=== PATIENT | female | born 1945 | race Caucasian/White ===

== ENCOUNTER 2023-05-12 15:08 | Emergency (ER) | payer MEDICARE, SELFPAY ==
[2023-05-12 15:15] VITALS: BP 106/81; PULSE 84; RESP 18; O2SAT 96
--- NOTE | 2023-05-12 15:15 | DI.RAD_ITS ---
Exam(s) XR HAND RT COMPLETE EXAM: XR HAND RT COMPLETE CLINICAL HISTORY: s/p fall, pain swelling. TECHNIQUE: 2D digital imaging was performed. Three views. COMPARISON: No exams were available for comparison FINDINGS: BONES: Nondisplaced fracture seen through the mid shaft of the 3rd metacarpal. No bony destructive l esion is seen. JOINTS: No dislocation present. SOFT TISSUE: Dorsal swelling. IMPRESSION: Nondisplaced fracture 3rd metacarpal. DATA REPOSITORY: RADIATION DOSE DELIVERED:
--- NOTE | 2023-05-12 16:40 | ED.GENADUL_ITS ---
Discharge Plan Disposition Patient Disposition: Home Discharge Details Clinical Impression: Hand fracture, right Primary Care Provider: Manuel Dang ED Provider: Alessandra Whyte Home Meds and New Rx's Prescriptions: Continued amphetamine sulfate [Evekeo] 10 MG tablet 10 mg PO BID Patient Comments: Not taking dextroamphetamine-amphetamine 10 mg tablet 10 mg PO QID Patient Comments: TAKE MAX OF 4 TABLETS THROUGHOUT THE DAY lisinopril-hydrochlorothiazide 10-12.5 mg tablet 1 tab PO DAILY Patient Comments: TAKE 1 TABLET BY MOUTH DAILY escitalopram oxalate 10 mg tablet 10 mg PO DAILY Patient Comments: TAKE 1 TABLET BY MOUTH DAILY Discharge Instructions Instructions: Hand Fracture (ED) Additional Instructions: Wear wrist splint for comfort and support for your right hand fracture Elevate above the level your heart is much as possible to reduce throbbing and swelling if needed Continue to use ice during the day 20 minutes every 2-3 hours for pain and swelling then you can use heat or ice per your preference after the first 2 days Referrals: Manuel Dang [Primary Care Provider] - (Follow-up with orthopedics in 1 to 2 weeks) Medical Decision Making This is a 77-year-old female with a past medical history of MS who had a mechanical fall with isolated injury to her right hand this happened yesterday. There was no other injury. X-ray of the right hand does show a nondisplaced third metacarpal fracture. She was placed in a wrist splint and will follow-up with orthopedics in 1 to 2 weeks. She should continue to ice elevate and NSAIDs for symptoms Medical Records Medical records reviewed: Yes I reviewed the patient's medical records. Imaging Data Radiologic Study: Attestation: I personally reviewed and interpreted this imaging study as follows: Imaging: X-Ray (Nondisplaced fracture third metacarpal) HPI General Mode of arrival: wheelchair . Date/Time Provider Initiated Documentation: 05/12/23 15:19 . Limitations to Documentation: no limitations . Information obtained by: patient . HPI Narrative: This is a 77-year-old female patient with MS who had a mechanical fall yesterday with injury to her right hand trying to prevent herself from falling. She has swelling bruising and pain to the dorsal aspect of her right hand. She is right-hand dominant. There was no other injury. She has a limited range of motion to her wrist but this is baseline for her she is able to move all her fingers she has no numbness or tingling distally. Related Data Home Medications Medication Instructions Recorded Confirmed amphetamine sulfate 10 mg tablet 10 mg PO BID 10/23/15 10/23/15 (Zacarias) dextroamphetamine-amphetamine 10 10 mg PO QID 05/12/23 05/12/23 mg tablet escitalopram oxalate 10 mg tablet 10 mg PO DAILY 05/12/23 05/12/23 lisinopril 10 1 tab PO DAILY 05/12/23 05/12/23 mg-hydrochlorothiazide 12.5 mg tablet Allergies Allergy/AdvReac Type Severity Reaction Status Date / Time No Known Allergies Allergy Unverified 05/12/23 15:18 General Stated Complaint: Orthopedic NAHUM: 4 Review of Systems All systems reviewed & are unremarkable except as noted in HPI and below ENT Ears, Nose, Mouth, and Throat: Denies vertigo and Denies dizziness Cardiovascular Cardiovascular: Denies syncope Musculoskeletal Musculoskeletal: Reports arthralgias, Reports joint swelling and Reports muscle weakness (Chronic and at baseline) Integumentary/Breasts Skin/Breast: Denies lesions Comments: Hematoma to dorsal aspect of right hand Neurologic Neurologic: Denies vertigo, Denies dizziness and Denies syncope PFSH All Active Problems (Updated 05/12/23 @ 16:50 by Alessandra Whyte NP) Hand fracture, right (Acute) Social History Smoking/Tobacco Use Status: Former Tobacco Use Smoking risk assessment performed?: Yes Alcohol Intake: never Drug use: Rarely Substance use type: does not use Exam Const General: cooperative and no acute distress Nutritional Appearance: thin Orientation: alert, awake and oriented x3 HENMT Head: normal to inspection, normocephalic and atraumatic Eyes General: appearance normal, both eyes and all related structures Neck Neck: normal visual inspection, full ROM, nontender and other (No C-spine tenderness on palpation) Resp Effort & Inspection: normal respiratory effort Cardio Rate: regular rate (Radial pulse intact right) Skin General skin exam: ecchymosis (Hematoma dorsal aspect right hand) Lesions: no lesions Rashes: no rashes Neuro General: patient alert, patient awake and patient oriented x3 Extrem Right upper extremity: elbow/forearm, wrist (Limited range of motion but at baseline per patient's report) Details: no tenderness, no swelling, no ecchymosis and no deformity and hand Details: abnormal to inspection (Hematoma to dorsal aspect right hand no obvious deformity); no edema (No significant edema but with hematoma over dorsal aspect) Left upper extremity: normal to inspection Course Vital Signs Vital signs: Vital Signs Pulse 84 05/12/23 15:15 Respiratory Rate 18 05/12/23 15:15 Blood Pressure 106/81 05/12/23 15:15 Pulse Oximetry 96 05/12/23 15:15 Pulse 84 05/12/23 15:15 Respiratory Rate 18 05/12/23 15:15 Respiratory Effort Normal 05/12/23 15:22 Blood Pressure 106/81 05/12/23 15:15 Blood Pressure Position Sitting 05/12/23 15:15 Pulse Oximetry 96 05/12/23 15:15 Oxygen Delivery Method Room Air 05/12/23 15:15 Oxygen Flow Rate 0 05/12/23 15:15 Pain Level 0 05/12/23 15:15 Comment Pain is felt when the area is touched 05/12/23 15:15
== END 2023-05-12 17:12 | disposition home or self-care (01) ==
PROVIDERS: Emergency Provider Nurse Practitioner Acute Care
DX: M25.531 Pain in right wrist (principal); S62.392A Other fracture of third metacarpal bone, right hand, initial encounter for closed fracture; W18.39XA Other fall on same level, initial encounter; Y93.01 Activity, walking, marching and hiking; Y92.89 Other specified places as the place of occurrence of the external cause; Y99.9 Unspecified external cause status; Z87.891 Personal history of nicotine dependence
CPT/HCPCS: 29125; 99283; 73130

== ENCOUNTER 2023-05-25 14:49 | Outpatient (CLI) | payer MEDICARE, SELFPAY ==
--- NOTE | 2023-05-25 13:45 | DI.RAD_ITS ---
Exam(s) XR HAND RT LIMITED EXAM: XR HAND RT LIMITED INDICATION: right 3rd metacarpal fx. COMPARISON: CR XR HAND RT COMPLETE from 05/12/2023 TECHNIQUE: 2D digital imaging was performed. Three views. FINDINGS: There has been no change in the alignment of the nondisplaced fracture of the 3rd metacarpal. No new abnormalities. DATA REPOSITORY: RADIATION DOSE DELIVERED:
== END 2023-05-25 14:50 | disposition home or self-care (01) ==
LOC: DIORS 14:49
PROVIDERS: Visit Provider Student in an Organized Health Care Education/Training Program
DX: S62.302A Unspecified fracture of third metacarpal bone, right hand, initial encounter for closed fracture (principal); W19.XXXA Unspecified fall, initial encounter
CPT/HCPCS: 99203; 99213; 73120

== ENCOUNTER 2023-06-22 16:04 | Outpatient (CLI) | payer MEDICARE, SELFPAY ==
--- NOTE | 2023-06-22 14:00 | DI.RAD_ITS ---
Exam(s) XR HAND RT LIMITED EXAM: XR HAND RT LIMITED CLINICAL HISTORY: right hand f/u. TECHNIQUE: 2D digital imaging was performed. Two views. COMPARISON: CR XR HAND RT LIMITED from 05/25/2023 FINDINGS: There has been no change in the alignment of the fracture of the 3rd metacarpal. there is increased callus formation indicating some interval healing. The bones are overall appear osteoporotic. No n ew abnormalities are seen. DATA REPOSITORY: RADIATION DOSE DELIVERED:
== END 2023-06-22 16:05 | disposition home or self-care (01) ==
LOC: DIORS 16:04
PROVIDERS: Visit Provider Student in an Organized Health Care Education/Training Program
DX: S62.302D Unspecified fracture of third metacarpal bone, right hand, subsequent encounter for fracture with routine healing (principal); X58.XXXD Exposure to other specified factors, subsequent encounter
CPT/HCPCS: 99213; 73120

== ENCOUNTER 2024-05-31 11:58 | Emergency (ER) | payer MEDICARE, SELFPAY ==
[2024-05-31] VITALS (22 sets, daily range): BP systolic 99–158; BP diastolic 74–97; PULSE 71–76; RESP 15; TEMP 37; O2SAT 94–100
--- NOTE | 2024-05-31 12:36 | ED.GENADUL_ITS ---
Discharge Plan Disposition Patient Disposition: Home Discharge Details Clinical Impression: Multiple fractures of ribs of right side, Hx of falling Primary Care Provider: Unknown,Unknown ED Provider: Ru Jaramillo Home Meds and New Rx's Prescriptions: New lidocaine [Lidoderm] 5 % adhesive patch,medicated 1 patch topical DAILY Qty: 15 0RF Rx Instructions: leave on most painful area for up to 12 hrs gabapentin 100 mg capsule See Rx Instructions .ROUTE .COMPLEX Qty: 10 0RF Rx Instructions: 100 mg orally 3 times daily as needed Continued dextroamphetamine-amphetamine 10 mg tablet 10 mg PO QID Patient Comments: TAKE MAX OF 4 TABLETS THROUGHOUT THE DAY lisinopril-hydrochlorothiazide 10-12.5 mg tablet 1 tab PO DAILY Patient Comments: TAKE 1 TABLET BY MOUTH DAILY escitalopram oxalate 10 mg tablet 10 mg PO DAILY Patient Comments: TAKE 1 TABLET BY MOUTH DAILY amlodipine 5 mg tablet 5 mg PO DAILY Discharge Instructions Instructions: Rib fractures in adults Additional Instructions: You are seen in emergency department for your rib pain. You are found to have rib fractures on the right side of ribs 9 through 11. Please use the incentive spirometry device as provided by respiratory therapy as directed. Please return to the emergency department as we discussed if you develop fevers shortness of breath or uncontrollable pain. For your pain please take medications as follows: 1. Take acetaminophen (Tylenol), 650 mg every 6 hours [2. Take ibuprofen (Advil), 200 mg every 6 hours.] Prescriptions have also been sent to your pharmacy which you should take as directed. Please follow-up with your primary care provider next week. HPI General Date/Time Provider Initiated Documentation: 05/31/24 12:17 . HPI Narrative: MDM Primary survey intact. Reassuring shock index. On secondary survey patient has right-sided flank mild ecchymosis and abrasion concerning for underlying rib fracture. Based on the patient's age will obtain CT abdomen pelvis with IV contrast. No midline thoracic or lumbar spinal tenderness so we will defer thoracic and lumbar recons. No head strike nor loss of consciousness so will defer CT head. No midline cervical spinal tenderness that we will defer CT cervical spine. No pain out of proportion to suggest necrotizing soft tissue infection. Equal breath sounds so low suspicion for pneumothorax so will defer portable chest x-ray. No preceding dizziness to suggest CVA. No preceding chest pain or shortness of breath so doubt ACS and PE respectively so I did not obtain an ECG nor send a D-dimer. Patient has been ambulatory since her fall so my suspicion is low for hip fracture. Will send type and screen in the event that the patient has any significant intra abdominal hemorrhage. 1:15 PM Patient metabolic panel showing CKD. No prior for comparison. No acute electrolyte abnormalities. CBC shows mild normocytic anemia. No leukocytosis. No thrombocytopenia. 2:[address] scan patient was found to have multiple right-sided nondisplaced rib fractures, 9 through 11 with radiology questioning whether or not patient could have 1/8 rib fracture. No pneumothorax. No hemothorax. Will complete incentive spirometry with respiratory therapy following multimodal pain control using acetaminophen, low-dose gabapentin, low-dose ketorolac and 7.5 mg, Lidoderm patch, and 2 mg morphine. 3 PM Patient was able to pull 1500 cc on incentive spirometry. She had minimal pain. I spoke with Dr. Gibbs from general surgery. She agreed that given that the patient had adequate analgesia and was not anticoagulated and had no pneumothorax or hemothorax that she was appropriate for discharge. I considered regional nerve block with anesthesia however given well-controlled pain defer this procedure at this point in time and prescribe Lidoderm patch and low-dose gabapentin along with scheduled acetaminophen ibuprofen. We discussed return to the ED for any worsening pain fevers coughs or chills. She understood her return indications and was discharged with an empiric trial of expectant outpatient management. Chronic conditions affecting the care of the patient: Multiple sclerosis History obtained from an outside historian: N/A External record review: No [facility] [place] Medications: Acetaminophen Social determinants of health affecting disposition: N/A Management discussed with: General Surgery and respiratory therapy. Treatment/interventions considered: N/A Response to therapies provided: Well-controlled. HPI This is a 78-year-old female with a history of multiple sclerosis and hypertension arriving to emergency department private vehicle with her in the setting of right-sided rib pain. Patient notes that yesterday evening at approximately 9:30 PM she took a misstep and fell. She notes that she turned quickly and that her feet did not catch up with her. She did not hit her head. She does not feel short of breath. She denied loss of consciousness. She has been ambulatory since her fall. She has pain on the right side of her ribs. She has not been nauseous nor vomiting. Denies dysuria frequency and headache.Not anticoagulated. Exam General: Chronically ill-appearing in no acute distress speaking in complete sentences. Head: Normocephalic, atraumatic. Eye:[Pupils equal, round reactive to light.] Extraocular eye movements intact. No conjunctival injection. No scleral icterus. Ear, nose, mouth, throat: Grossly normal inspection. Normal voice, handling secretions normally. No hemotympanum bilaterally. No septal hematoma. Neck: Trachea midline. No midline cervical spinal tenderness. Back: No midline thoracic nor lumbar spinal tenderness. No step-off. No deformities. Cardiovascular: Well-perfused distal extremities. Regular rate and rhythm. Chest wall: No flail segments. Respiratory: Nonlabored respiration. Clear lungs bilaterally. Gastrointestinal: Nondistended abdomen. Soft nontender. Mild ecchymosis to the patient's right flank. Tenderness to palpation over ecchymosis. Musculoskeletal: No edema. Moving all 4 extremities spontaneously. Skin: Normal for age and race, grossly normal temperature and turgor. No acute rash. Neurologic: Alert and appropriate, no apparent acute deficits. GCS 15. Psychiatric: Mood and manner are appropriate. Grooming and personal hygiene are appropriate. Related Data Home Medications ?Medication ?Instructions ?Recorded ?Confirmed dextroamphetamine-amphetamine 10 10 mg PO QID 05/12/23 05/31/24 mg tablet escitalopram oxalate 10 mg tablet 10 mg PO DAILY 05/12/23 05/31/24 lisinopril 10 1 tab PO DAILY 05/12/23 05/31/24 mg-hydrochlorothiazide 12.5 mg tablet amlodipine 5 mg tablet 5 mg PO DAILY 05/31/24 05/31/24 gabapentin 100 mg capsule See Rx Instructions .Route 05/31/24 .COMPLEX #10 caps lidocaine 5 % topical patch 1 patch topical DAILY #15 ea 05/31/24 (Lidoderm) Previous Rx's ?Medication ?Instructions ?Recorded gabapentin 100 mg capsule See Rx Instructions .Route 05/31/24 .COMPLEX #10 caps lidocaine 5 % topical patch 1 patch topical DAILY #15 ea 05/31/24 (Lidoderm) Allergies Allergy/AdvReac Type Severity Reaction Status Date / Time No Known Allergies Allergy Unverified 05/31/24 12:14 General Stated Complaint: Chest/Rib NAHUM: 4 Course Vital Signs Vital signs: Vital Signs Temperature 37.0 C 05/31/24 12:08 Pulse 75 08/08/24 12:08 Respiratory Rate 15 05/31/24 12:08 Blood Pressure 138/97 H 05/31/24 12:08 Pulse Oximetry 95 05/31/24 12:08 Temperature 37.0 C 05/31/24 12:08 Temperature Source Oral 05/31/24 12:08 Pulse 75 05/31/24 12:08 Respiratory Rate 15 05/31/24 12:08 Respiratory Effort Normal 05/31/24 12:13 Respiratory Depth Normal 05/31/24 12:13 Respiratory Pattern Normal 05/31/24 12:13 Blood Pressure 138/97 H 05/31/24 12:08 Blood Pressure Position Supine 05/31/24 12:08 Pulse Oximetry 95 05/31/24 12:08 Oxygen Delivery Method Room Air 05/31/24 12:08 Oxygen Flow Rate 0 05/31/24 12:08 Pain Level 7 05/31/24 12:13 Medical Decision Making Quality:SDOH Health Related Social Needs: No Data to Display PFSH All Active Problems (Updated 05/31/24 @ 14:38 by Ru Jaramillo MD) Hx of falling (Acute) Multiple fractures of ribs of right side (Acute) Fracture of third metacarpal bone of right hand (Acute 05/12/23) Social History Smoking/Tobacco Use Status: Former Tobacco Use Smoking risk assessment performed?: Yes Alcohol Intake: never Drug use: Rarely Substance use type: does not use Current gender identity: female
[2024-05-31 12:48] LABS: Abs Immature Grans 0.01 10^3/uL (0.0-0.06); Absolute Basophil Count 0.06 10^3/uL (0.0-0.2); Absolute Eosinophil Count 0.15 10^3/uL (0.0-0.7); Absolute Lymphocyte Count 0.91 10^3/uL (1.2-3.4); Absolute Monocyte Count 0.78 10^3/uL (0.1-0.8); Absolute Neutrophil Count 4.36 10^3/uL (1.2-6.7); Eosinophils % 2.4 %; HCT 33.7 % (36.0-46.0); Immature Grans % 0.2 %; Lymphocytes % 14.5 %; MCH 29.1 pg (27.0-33.0); MCHC 32.6 % (32.0-36.0); MCV 89 fL (80-95); MPV 10.2 fL (8.0-11.0); Monocytes % 12.4 %; Neutrophils % 69.5 %; Platelet Count 223 10^3/uL (130-400); RBC 3.78 10^6/uL (3.93-5.22); RDW 13.6 % (11.7-14.6); RDW-SD 44.6 fL; WBC 6.27 10^3/uL (4.4-10.8)
[2024-05-31 12:57] LABS: Anion Gap 6.2 mmol/L (3-11); BUN 31 mg/dL (7-18); CO2 31.8 mmol/L (21.0-32.0); CREATININE 1.2 mg/dL (0.55-1.02); Calcium 9.3 mg/dL (8.5-10.1); Chloride 100 mmol/L (98-107); Estimated GFR 46.91 (mL/min/1.73m2); Glucose 94 mg/dL (74-106); Potassium 4.3 mmol/L (3.5-5.1); Sodium 138 mmol/L (136-145)
--- NOTE | 2024-05-31 13:29 | DI.CT_ITS ---
Exam(s) CT CHEST/ABD/PEL W EXAM: CT CHEST/ABD/PEL W CLINICAL HISTORY: Right-sided rib pain. TECHNIQUE: Imaging Protocol: Axial computed tomography images with coronal and sagittal reformatted images were created and reviewed CONTRAST MATERIAL: Intravenous: Omnipaque 350 Contrast volume:65 ml Oral: no COMPARISON: No exams were available for comparison FINDINGS: CHEST: Tracheobronchial tree: Patent. Pulmonary parenchyma: No consolidation or dominant measurable mass. No evidence of pulmonary contusi on. Pleura: No effusion or pneumothorax. Mediastinum: Within normal limits. Aorta: Ascending aorta measures 3.9 cm. Descending aorta measures 2.3 cm. Pulmonary arteries: No visible emboli. Heart: No pericardial effusion. Mild coronary artery calcifications. Bones: Nondisplaced fractures of the right posterolateral 9th through 11th ribs. Question of additio nal fracture of the right 8th rib. No lytic or blastic lesions.No compression fractures. Soft tissues: Unremarkable. ABDOMEN and PELVIS: Liver: Normal density. No measurable mass. Gallbladder and biliary tract: No evidence of stones or wall thickening. No biliary dilatation. Pancreas: Normal density, no abnormal calcifications or inflammatory process. Spleen: Normal. Kidneys: Normal size, contour and axis. No radiodense stones. No obstructive uropathy. No suspicious masses seen. Adrenal glands: No masses seen. Aorta: Abdominal portion non-dilated. Lymph nodes: Within normal limits. Soft tissues: Unremarkable. Bladder: Unremarkable. Bowel: No obstruction or bowel wall thickening. Large quantity of stool in the right through descendi ng colon, consistent with constipation. Peritoneal cavity: No ascites. No focal collection. No mesenteric inflammatory response. No free ai r. Bones: The spine shows degenerative changes and mild scoliosis. Reproductive organs: Within normal limits. IMPRESSION: Nondisplaced fractures of the right 9th through 11th ribs. Question of additional nondisplaced fract ure of the 8th rib. No pneumothorax or pulmonary contusion. No acute abnormality abdomen pelvis. Large quantity stool consistent with constipation. Findings called to Dr. Jaramillo of the emergency department. RADIATION DOSE DELIVERED: Total DLP DATA REPOSITORY: All CT scans at this facility are submitted to the National Radiology Data Registry (NRDR) Dose Index Registry (DIR) with the [employer] ([employer]). RADIATION OPTIMIZATION: All CT scans at this facility use at least one of these dose optimization te chniques: automated exposure control; mA and/or kV adjustment per patient size (includes targeted exa ms where dose is matched to clinical indication); or iterative reconstruction.
[2024-05-31] MEDS: Omnipaque 350 MG/ML 100 ML BTL 65 ML IJ (13:33)
[2024-05-31] MEDS: Normal Saline - Diluent 50 ML VIAL IJ (13:34)
[2024-05-31] MEDS: Acetaminophen 325 MG TAB 650 MG PO (14:04)
[2024-05-31] MEDS: Gabapentin 300 MG CAP 100 MG PO (14:39)
[2024-05-31] MEDS: Lidocaine 5% Patch 1 PATCH TP (14:39)
[2024-05-31] MEDS: Ketorolac 15 MG/ML VIAL 7.5 MG IVP (14:40)
[2024-05-31] MEDS: MORPHine 4 MG/ML SYR 2 MG IVP (14:40)
== END 2024-05-31 15:16 | disposition home or self-care (01) ==
PROVIDERS: Emergency Provider Emergency Medicine
DX: S22.41XA Multiple fractures of ribs, right side, initial encounter for closed fracture (principal); G35 Multiple sclerosis; I10 Essential (primary) hypertension; Z87.891 Personal history of nicotine dependence; W01.0XXA Fall on same level from slipping, tripping and stumbling without subsequent striking against object, initial encounter; Y93.89 Activity, other specified; Y92.018 Other place in single-family (private) house as the place of occurrence of the external cause
CPT/HCPCS: 74177; 80048; 86850; 86900; 86901; 96374; 96375; 99285; 71260; 85025; 99284; J1885; J2270; J3490

== ENCOUNTER 2024-06-19 14:54 | Emergency (ER) | payer MEDICARE, SELFPAY ==
[2024-06-19 15:07] VITALS: BP 102/69; PULSE 92; RESP 18; TEMP 36.4; O2SAT 93
--- NOTE | 2024-06-19 15:15 | DI.US_ITS ---
Exam(s) US LOWER EXTREMITY VENOUS RT EXAM: US LOWER EXTREMITY VENOUS RT CLINICAL HISTORY: Swelling. TECHNIQUE: Lower extremity venous ultrasound performed using grayscale, color-flow, and spectral Do ppler analysis. COMPARISON: No exams were available for comparison FINDINGS: The common femoral, femoral and popliteal veins demonstrate normal compressibility, augmentation, and color Doppler. The posterior tibial veins are patent. No saphenous vein thrombosis or other superfi cial venous thrombosis is seen. No hematoma or Davis's cyst is seen. IMPRESSION: Negative lower extremity ultrasound. No evidence of DVT. DATA REPOSITORY:
--- NOTE | 2024-06-19 17:05 | ED.GENADUL_ITS ---
Discharge Plan Disposition Patient Disposition: Home Condition: Stable Discharge Details Clinical Impression: Swelling of right lower extremity Primary Care Provider: Dinorah Santana ED Provider: Carol Duron Home Meds and New Rx's Prescriptions: New (DME) compression socks, medium Misc See Rx Instructions .Route Qty: 2 0RF Rx Instructions: As directed No Action tolterodine 4 mg capsule,extended release 24hr 4 mg PO DAILY dextroamphetamine-amphetamine 10 mg tablet 10 mg PO QID Patient Comments: TAKE MAX OF 4 TABLETS THROUGHOUT THE DAY lisinopril-hydrochlorothiazide 10-12.5 mg tablet 1 tab PO DAILY Patient Comments: TAKE 1 TABLET BY MOUTH DAILY escitalopram oxalate 10 mg tablet 10 mg PO DAILY Patient Comments: TAKE 1 TABLET BY MOUTH DAILY amlodipine 5 mg tablet 5 mg PO DAILY lidocaine [Lidoderm] 5 % adhesive patch,medicated 1 patch topical DAILY Qty: 15 0RF Rx Instructions: leave on most painful area for up to 12 hrs Discharge Instructions Instructions: Lymphedema (DC) Additional Instructions: You were seen in the emergency department today for evaluation of swelling in your right leg. In our department you had a full physical examination performed and had an ultrasound that was negative for blood clot. You likely have a condition called lymphedema, and it is safe to go home and wear compression socks and continue elevating your leg. You need to follow-up with your primary care provider in the next few days to discuss this visit and any symptoms that change, worsen, or persist. Thank you for allowing us to be part of your care. HPI General Mode of arrival: ambulatory . Date/Time Provider Initiated Documentation: 06/19/24 14:55 . Limitations to Documentation: no limitations . Information obtained by: patient, family and old records reviewed . HPI Narrative: MDM: This is a 78-year-old female patient presenting for evaluation of several months of right lower extremity swelling. My differential includes but is not limited to lymphedema, DVT, considered injury to that area given her history of multiple falls though the patient reports that she has not had pain or noticed any injury and the duration of symptoms will be less consistent with the timing of her most recent fall which was a week or 2 ago. The unilaterality of the area makes me less concerned for fluid overload due to cardiac disease such as CHF, or due to liver or kidney failure. She has no redness, induration, warmth to suggest cellulitis or infection. She has strong DP pulses that are symmetrical, with no pallor, neurodeficits, or temperature changes to increase my concern for arterial occlusion. We we will obtain a DVT ultrasound of the affected right lower extremity. I discussed obtaining laboratory studies with the patient at this time, as well as an x-ray to evaluate for acute injury, and given her low concern for other abnormalities besides clot or lymphedema the patient has declined, which I do th ink is reasonable given her reassuring examination and the duration of her symptoms. ED Course: DVT ultrasound negative, and I provided the patient with a prescription for compression socks and recommended wearing them and continuing to elevate her lower extremities. I discussed warning signs for arterial occlusion, infection, and she will follow-up with her primary care provider with any other concerns. At this time, the patient has had a full medical evaluation and is safe for discharge to home. They are hemodynamically stable, ambulatory, and tolerating PO. They are understanding of the follow-up plan and return precautions. They left our facility without incident. Carol Duron MD HPI: This is a 78-year-old female patient with a past medical history of MS, multiple falls, hypertension, presenting for evaluation of right lower extremity swelling. The patient reports that for the last several months she has noted intermittent swelling of her right ankle. She tries to elevate the ankle and states that this does sometimes assist in improving the swelling. She has not noted pain, has not sustained injury to her ankle though she does take several falls, and most recently had fractures of her ribs. She reports that she has not noted any skin changes such as redness, warmth, or irritation, has not had rashes or lesions. She has preserved sensation, motor function, no pain with ambulation of the lower extremity. No history of cardiac disease, liver failure or kidney injury. Exam: Gen: Awake and alert, in no apparent distress HEENT: Non-icteric sclera Neck: Supple Lungs: No apparent respiratory distress, normal respiratory effort. CV: Appears well perfused and symmetrical distal pulses Abdomen: Non-distended MSK: Moves 4 extremities without apparent limitation in ROM. The patient has 1+ pedal edema to the distal cast, with sock line present that is not present on the contralateral foot. She has no temperature change, pallor, loss of sensation, or motor abnormalities of the affected right foot. No overlying skin changes such as induration, redness, swelling. She has strong DP pulses which are symmetrical Skin: Visualized skin without rashes, cyanosis. Neuro: Normal Gait, no obvious focal deficits or facial asymmetry. Speaks in full, clear sentences. Psych: Appropriate for situation. Related Data Home Medications ?Medication ?Instructions ?Recorded ?Confirmed dextroamphetamine-amphetamine 10 10 mg PO QID 05/12/23 06/19/24 mg tablet escitalopram oxalate 10 mg tablet 10 mg PO DAILY 05/12/23 06/19/24 lisinopril 10 1 tab PO DAILY 05/12/23 06/19/24 mg-hydrochlorothiazide 12.5 mg tablet amlodipine 5 mg tablet 5 mg PO DAILY 05/31/24 06/19/24 lidocaine 5 % topical patch 1 patch topical DAILY #15 ea 05/31/24 06/19/24 (Lidoderm) compression socks, medium #2 ea 06/19/24 tolterodine 4 mg capsule,extended 4 mg PO DAILY 06/19/24 06/19/24 release 24 hr Previous Rx's ?Medication ?Instructions ?Recorded lidocaine 5 % topical patch 1 patch topical DAILY #15 ea 05/31/24 (Lidoderm) compression socks, medium #2 ea 06/19/24 Allergies Allergy/AdvReac Type Severity Reaction Status Date / Time No Known Allergies Allergy Unverified 06/19/24 15:09 General Stated Complaint: Vascular NAHUM: 3 Course Vital Signs Vital signs: Vital Signs Temperature 36.4 C L 06/19/24 15:07 Pulse 92 H 06/19/24 15:07 Respiratory Rate 18 06/19/24 15:07 Blood Pressure 102/69 06/19/24 15:07 Pulse Oximetry 93 06/19/24 15:07 Temperature 36.4 C L 06/19/24 15:07 Temperature Source Skin 06/19/24 15:07 Pulse 92 H 06/19/24 15:07 Respiratory Rate 18 06/19/24 15:07 Blood Pressure 102/69 06/19/24 15:07 Blood Pressure Position Sitting 06/19/24 15:07 Pulse Oximetry 93 06/19/24 15:07 Oxygen Delivery Method Room Air 06/19/24 15:07 Oxygen Flow Rate 0 06/19/24 15:07 Pain Level 2 06/19/24 15:07 Medical Decision Making Quality:SDOH Health Related Social Needs: No Data to Display PFSH All Active Problems (Updated 06/19/24 @ 17:06 by Carol Duron MD) Swelling of right lower extremity (Acute) Hx of falling (Acute) Multiple fractures of ribs of right side (Acute) Fracture of third metacarpal bone of right hand (Acute 05/12/23) Social History Smoking/Tobacco Use Status: Former Tobacco Use Smoking risk assessment performed?: Yes Alcohol Intake: never Drug use: Rarely Substance use type: does not use Current gender identity: female
[2024-06-19 17:18] VITALS: BP 102/69; PULSE 92; RESP 18; TEMP 36.4; O2SAT 93
[2024-06-19 17:22] VITALS: RESP 15
== END 2024-06-19 17:23 | disposition home or self-care (01) ==
PROVIDERS: Emergency Provider Emergency Medicine; PCP Internal Medicine
DX: R22.41 Localized swelling, mass and lump, right lower limb; G35 Multiple sclerosis; I10 Essential (primary) hypertension; Z87.891 Personal history of nicotine dependence
CPT/HCPCS: 99284; 93971; 99283